=== PATIENT | female | born 1950 | race Caucasian/White ===

== ENCOUNTER 2016-10-15 03:56 | Inpatient (IN) | payer OTHER ==
[2016-10-15] VITALS (8 sets, daily range): BP systolic 122–184; BP diastolic 63–86
[~2016-10-15] VITALS: Ht 180.3 cm; Wt 107.8 kg
--- NOTE | ~2016-10-15 | EKG ---
[address] [address] ELECTROCARDIOGRAM REPORT Name: BRIANNA OSPINA Room #: 215-P ADM IN M.R.#: [id number] Admission: 10/15/16 Attend Phys: Javon Kaba MD Discharge: Date of : 54 Report #: [id number] THIS REPORT FOR: //name// [facility] ED Test Date: 2016-10-15 Test Time: 04:00:25 Pat Name: BRIANNA OSPINA Department: Room: [facility] Gender: F Floor Coverings Installer: OWEN : 1950 Requested By: Anthony Ulrich Order Number: [id number] MD: Rj Billings Measurements Intervals Kiefer Rate: 69 P: 67 ID: 127 QRS: 42 QRSD: 98 T: 20 QT: 401 QTc: 430 Interpretive Statements Sinus rhythm No Significant abnormality No previous ECG available for comparison Electronically Signed On 10-15-2016 7:43:10 CDT by Rj Billings [email or web address] <ELECTRONICALLY SIGNED> By: Rj Billings MD, [facility] 10/15/16 0743 0400 0400 Rj Billings MD, FACC /EPI
--- NOTE | ~2016-10-15 | O ---
[facility] [email or web address] [address] OPERATIVE REPORT Name: BRIANNA OSPINA Room #: 215-P [facility] IN M.R.#: [id number] Admission: 10/15/16 Attend Phys: Júnior Mohamud DO Discharge: 10/17/16 Date of : 54 Report #: [id number] THIS REPORT FOR: //name// CC: Júnior SHAH TREEMANEEKARN DATE OF SERVICE: 10/16/2016 PREOPERATIVE DIAGNOSES: 1. Acute cholecystitis. 2. Cholelithiasis. 3. Obesity. 4. Gastroesophageal reflux disease. 5. Hyperlipidemia. 6. Suspected intra-abdominal adhesions. POSTOPERATIVE DIAGNOSES: 1. Acute cholecystitis. 2. Cholelithiasis. 3. Obesity. 4. Gastroesophageal reflux disease. 5. Hyperlipidemia. 6. Intra-abdominal adhesions. 7. Incarcerated incisional ventral hernia. PROCEDURES PERFORMED: 1. Laparoscopic cholecystectomy with intraoperative cholangiogram. 2. Laparoscopic primary suture repair of an incarcerated incisional ventral hernia. SURGEON: Ulysses Sarabia MD. LAY OUT WORKER: Nicolette Stafford MS3. ANESTHESIA: General endotracheal anesthesia. ESTIMATED BLOOD LOSS: Minimal (less than 5 mL). COMPLICATIONS: None appreciated. SPECIMENS: Gallbladder to pathology. INDICATIONS: The patient is a 66-year-old, slightly obese female, who presented to the emergency room yesterday with severe sudden onset chest pain, radiating down into the epigastrium with nausea and vomiting. The patient was [facility] [place] [address] OPERATIVE REPORT Name: BRIANNA OSPINA Room #: 215-P [facility] IN M.R.#: [id number] Admission: 10/15/16 Attend Phys: Júnior Mohamud DO Discharge: 10/17/16 Date of : 54 Report #: [id number] concerned she was having a heart attack, and underwent a thorough cardiac workup showing no evidence of an ID. A CT angiogram of the chest, abdomen, and pelvis did show, mild thickening to the gallbladder wall, with a large stone, impacting the neck of the gallbladder, and she underwent followup ultrasound, which showed findings concordant with the CT scan. The patient was initiated on IV antibiotic therapy, and as such, indication was for definitive management in the form of laparoscopic cholecystectomy today. Intraoperative findings of adhesions in the mid abdomen from her prior hysterectomy were seen with evidence of an incarcerated band of omentum contained within an incisional ventral hernia, significantly inferior to my supraumbilical fascial incision that required primary suture repair separately from the cholecystectomy. DESCRIPTION OF PROCEDURE: After explaining the risks, benefits, and alternatives of the procedure with the patient in detail in the preoperative holding area and obtaining a written consent, the patient was brought to the operating room and placed supine on the operating room table. After conducting a thorough timeout procedure verifying correct patient and procedure, the patient was given general endotracheal anesthesia. Once adequate anesthesia was obtained, SCDs were placed on the patient's bilateral lower extremities, and she was given a preoperative dose of antibiotics in line with the SCIP protocol, as it was time for her regularly scheduled inpatient regimen. The patient's abdomen was then prepped and draped in the standard surgical sterile fashion. A 5 mL of 0.5% Marcaine with epinephrine were used to anesthetize the skin in the supraumbilical location. A #15 bladed scalpel was used to create a 1 cm transverse skin incision at this location. A #15 bladed scalpel was used to create a 1 cm transverse skin incision at this location. An 11 mm Visiport was placed over a 5 mm 0 degree laparoscope, and intra-abdominal access was obtained through this incision site. Once intraabdominal placement was verified visually, the obturator for the trocar and laparoscope were both removed, and the abdomen was insufflated to 15 mmHg using carbon dioxide gas. The laparoscope was changed to a 10 mm 30-degree laparoscope, which was reintroduced through this trocar. The entire abdomen was evaluated to ensure no injury upon entry, and no pathology outside the right upper quadrant. We immediately identified intra-abdominal adhesions within the mid abdomen. However, our attention was turned towards the upper abdomen first. The patient was placed in reverse Trendelenburg position with right side elevated, and I proceeded to place three additional 5 mm trocars. One was placed in the subxiphoid location and two were placed along the patient's right subcostal margin. All three additional 5 mm ports were placed under direct vision, after anesthetizing the skin at each location with 5 mL of 0.5% Marcaine with epinephrine, and I had created small skin nicks using #15 bladed scalpel. Using the inferolateral most port along the patient's right flank, the fundus of the gallbladder was grasped and retracted cephalad. Careful tedious dissection was now undertaken down around the cholecystocystic junction using a combination of Harmonic scalpel and Maryland dissector. Once I had attained a critical view, namely the cystic duct emanating from the infundibulum of the gallbladder, and coursing into the common [address] [address] OPERATIVE REPORT Name: BRIANNA OSPINA Room #: 215-P DIS IN Jesus#: [id number] Admission: 10/15/16 Attend Phys: Júnior CarverDaniel OneidaDO Discharge: 10/17/16 Date of : 54 Report #: [id number] bile duct, as well as cystic artery running to the surface of the gallbladder, and I had created a window behind each. I placed a single clip along the cystic artery, and transected it nearest to the gallbladder side with Harmonic scalpel for complete hemostasis. A single clip was then placed along the cystic duct nearest to the gallbladder side, and a small ductotomy was made just distal to this clip using EndoShears. This ductotomy was cannulated using the taut cholangiocatheter setup and an intraoperative cholangiogram was obtained. We had prompt opacification of the cystic duct with antegrade flow of contrast into the duodenum. There was no evidence of filling defects or obstruction. Upon flushing saline, I was able to get the intrahepatic bile ducts to fill somewhat to confirm placement within the cystic duct. The taut cholangiocatheter setup was now removed, three clips were placed along the cystic duct nearest to the common bile duct side, and it was transected above these clips using Harmonic scalpel to help seal the duct closed. Further retraction of the infundibulum of the gallbladder in cephalad direction allowed me to elevate the gallbladder off the liver bed, using Harmonic scalpel for hemostasis. Once completely detached, the laparoscope was removed, changed to a 5-mm 30-degree laparoscope, which was reintroduced through the right midclavicular 5 mm trocar. The EndoCatch bag was placed in to supraumbilical trocar and specimen was placed within it under direct vision. The pursestring suture was drawn and specimen was removed from the abdomen under direct vision with ease. I then proceeded to place a supraumbilical fascial closing suture using 0 PDS suture on the Oliver-Chastity needle under direct vision to place the pvfqgg-vu-jbmef suture. This was not tied down at this juncture, but it was tagged with hemostat and trocars were placed under direct vision. I now utilized the Harmonic scalpel to take down the adhesions in the mid abdomen, skeletonizing the posterior aspect of the anterior abdominal wall. There was no evidence of bowel tethered to the abdominal wall whatsoever; however, upon taking down these adhesions, we did encounter an incarcerated band of omentum contained within an incisional ventral hernia from her lower midline and hysterectomy. I, therefore, used the 0 PDS suture on a Oliver-Chastity needle with suture passer device to place a udyets-qz-oqdvu fascial suture around this hernia defect, and tied it down under direct vision completely repairing the defect. Evaluation of the gallbladder fossa showed complete hemostasis with no evidence of spillage or bleeding. The clips on the cystic duct stump appeared to be seated nicely. All ports were now removed under direct vision. The abdomen was fully desufflated. The 0 PDS suture for the supraumbilical fascial incision was then tied down and done so under direct vision by placing the laparoscope back in the right midclavicular 5 mm trocar with the insufflation pressure to 5 mmHg to ensure I did not catch a loop of bowel or omentum in my suture repair. Once the abdomen was fully desufflated, all ports were removed, and all skin incisions were closed using 4-0 Monocryl in standard subcuticular fashion, and skin incisions were closed with Dermabond. The gallbladder was opened on the back table, showing significant findings of marked cholesterolosis and one large gallstone impacting the neck of the gallbladder along with edematous changes and findings consistent with acute on chronic cholecystitis, but no other pathologic findings were [facility] [address] [place] [address] OPERATIVE REPORT Name: BRIANNA OSPINA Room #: 215-P [facility] IN M.R.#: [id number] Admission: 10/15/16 Attend Phys: Júnior Mohamud DO Discharge: 10/17/16 Date of : 54 Report #: [id number] identified. At the end of the procedure, all instrument, needle and sponge counts were correct. The patient tolerated the procedure without incident, was awakened in the operating room, and transitioned to the recovery room in stable condition with no apparent complications. <ELECTRONICALLY SIGNED> By: Ulysses Sarabia MD, FACS 10/18/16 0914 1834 00 Ulysses Sarabia MD, FACS /nt
--- NOTE | ~2016-10-15 | HC ---
[facility] [place] [address] CONSULTATION Name: BRIANNA OSPINA Room #: 215-P ADM IN M.R.#: [id number] Admission: 10/15/16 Attend Phys: Júnior Mohamud DO Discharge: Date of : 54 Report #: [id number] THIS REPORT FOR: //name// CC: Javon [facility]ARN DATE OF SERVICE: 10/15/2016 REFERRING PROVIDER: Javon Kaba MD REASON FOR CONSULTATION: Abdominal pain, nausea and vomiting. HISTORY OF PRESENT ILLNESS: The patient is a 66-year-old overweight female who presented with chest pain and epigastric abdominal pain that began last evening. The patient stated nausea and vomiting and radiation to the left side of her abdomen and in through her back and as such presented to the Emergency Room as she felt she was having a heart attack. The patient underwent a thorough workup with laboratories and EKG, serial troponins and echocardiogram and CT angiogram of the chest, abdomen and pelvis. The patient's complete cardiac workup was negative and the CT scan showed findings of a large gallstone in the neck of the gallbladder with minimal gallbladder wall thickening. The patient then received an ultrasound of the abdomen, which shows cholelithiasis with a large calculus impacted in the neck of the gallbladder with mild gallbladder wall thickening and pericholecystic fluid concerning for acute cholecystitis, especially since she did have a positive sonographic Alva sign as well. There is no ductal dilatation and her labs are completely within normal limits at this time. As the patient has likely acute cholecystitis, I have been asked to evaluate from a surgical standpoint. 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 She has also undergone a hysterectomy. HOME MEDICATIONS: Magnesium oxide, calcium and vitamin B. ALLERGIES: Numerous and include DILAUDID, ADHESIVE TAPE, BACITRACIN, NEOMYCIN, POLYMYXIN B, SULFA, LATEX AND SILVADENE. FAMILY HISTORY: Reviewed and noncontributory. SOCIAL HISTORY: The patient has a long tobacco use history of greater than 1 pack per day for several years and quit less than one year ago. Does not utilize alcohol or illicit drugs. REVIEW OF SYSTEMS: [facility] [address] [place] [address] CONSULTATION Name: BRIANNA OSPINA Room #: 215-P [facility] IN .R.#: [id number] Admission: 10/15/16 Attend Phys: Júnior Mohamud DO Discharge: Date of : 54 Report #: [id number] GENERAL: The patient denies nocturnal fevers or chills. HEENT: No change in vision, change in hearing. NECK: No swelling or difficulty swallowing. HEART: Recent chest pain, but no palpitations. LUNGS: No cough or shortness of breath. ABDOMEN: Abdominal pain, nausea and vomiting. GENITOURINARY: No dysuria or hematuria. ENDOCRINE: No polyuria, polydipsia. HEMATOLOGIC: No history of bleeding or easy bruising. EXTREMITIES: No history of weakness or limited range of motion. NEUROLOGIC: No history of syncope or near syncopal episodes. SKIN AND INTEGUMENT: No history of abnormal lesions or moles. PSYCHIATRIC: No history of anxiety or depression. PHYSICAL EXAMINATION: VITAL SIGNS: Temperature 97.6, pulse 52, respirations 18, blood pressure 127/65. She stands 5 feet 11 inches, weighs 220 pounds. GENERAL: Alert and oriented, in no acute distress. HEENT: Normocephalic, atraumatic. Pupils equal, round, reactive to light. NECK: Supple, without lymphadenopathy. Trachea midline. HEART: Regular rate and rhythm. LUNGS: Clear to auscultation bilaterally. ABDOMEN: Abdominal pain in the right upper quadrant to deep palpation, but no guarding, rebound or peritoneal signs or symptoms. She is soft and nondistended. GENITOURINARY: Normal external female genitalia. EXTREMITIES: No clubbing, cyanosis or edema. NEUROLOGIC: Cranial nerves 2-12 are grossly intact. PSYCHIATRIC: Normal mood and affect. SKIN AND INTEGUMENT: No abnormal lesions or moles. LABORATORY AND X-RAY DATA: CBC shows white blood cell count 10.8 thousand, hemoglobin 15.2, platelets 283,000. She does have a minimal left shift with 77% neutrophils. The patient's creatinine was 0.9. Liver function enzymes and lipase were all normal. INR was normal at 1.0 with PTT normal at 27.0. Chest x-ray shows no acute cardiopulmonary abnormality. Troponins are negative. Echocardiogram shows normal ejection fraction with no structural defects and trace to mild tricuspid regurgitation. CT angiogram of the chest, abdomen and pelvis shows only mild gallbladder wall thickening with cholelithiasis. Ultrasound of the abdomen as per HPI shows cholecystitis with cholelithiasis. ASSESSMENT AND PLAN: A 66-year-old overweight female with what appears to be acute cholecystitis. The patient will be kept n.p.o., given IV fluid rehydration and IV antibiotics and we will proceed to the operating room at the first available opportunity for definitive management to perform laparoscopic cholecystectomy with cholangiogram. Risks, benefits and [address] [address] CONSULTATION Name: BRIANNA OSPINA Room #: 215-P ADM IN M.R.#: [id number] Admission: 10/15/16 Attend Phys: Júnior Mohamud DO Discharge: Date of : 54 Report #: [id number] alternatives of that procedure have been discussed with the patient in detail and she agrees to proceed as outlined. I sincerely appreciate this consult. I will follow closely and leave any further recommendations in the patient's chart as appropriate. <ELECTRONICALLY SIGNED> By: Ulysses Sarabia MD, FACS 10/16/16 0711 1906 19 Ulysses Sarabia MD, FACS /nt
--- NOTE | ~2016-10-15 | 2DMMODE ---
[place] [address] [facility] [place] [address] 2 D/M-MODE ECHOCARDIOGRAM Name: BRIANNA OSPINA Room #: 215-P ADM IN M.R.#: [id number] Admission: 10/15/16 Attend Phys: Hari Ledesma Discharge: Date of : 54 Date of Service: 10/15/16 1530 Report #: [id number] THIS REPORT FOR: //name// APPROVED REPORT Study performed: 10/15/2016 14:36:17 EXAM: Comprehensive 2D, Doppler, and color-flow Echocardiogram Patient Location: Bedside Room #: 215 Blood Pressure: 132/63 mmHg HR: 51 bpm Other Information Study Quality: Fair Indications Chest Pain 2D Dimensions RVDd: 28.28 mm LVEF(%): 61.56 (>50%) IVSd: 8.83 (7-11mm) LVOT Diam: 21.03 (18-24mm) LVDd: 44.22 mm PWd: 9.36 (7-11mm) LVDs: 29.68 (25-40mm) Aortic Root: 23.79 mm IVC: 21.00 mm Swartz's LVEF: 61.56 % Volumes Left Atrial Volume (Systole) Single Plane 4CH: 36.50 mL Single Plane 2CH: 54.24 mL LA ESV Index: 22.00 mL/m2 Aortic Valve AoV Peak Homer.: 1.68 m/s AO Peak Gr.: 11.29 mmHg LVOT Max P.80 mmHg LVOT Max V: 1.30 m/s CIERA Vmax: 2.69 cm2 Mitral Valve E/A Ratio: 2.3 MV Decel. Time: 137.46 ms [facility] [place] [address] [place] [address] 2 D/M-MODE ECHOCARDIOGRAM Name: CHANDANAGABRIELAADABRIANNA Room #: 215-[facility] IN ..#: [id number] Admission: 10/15/16 Attend Phys: Hari Ledesma Discharge: Date of : 54 Date of Service: 10/15/16 1530 Report #: [id number] MV E Max Homer.: 0.89 m/s MV A Homer.: 0.39 m/s MV PHT: 39.86 ms IVRT: 64.59 ms Pulmonary Valve PV Peak Homer.: 0.87 m/s PV Peak Gr.: 3.02 mmHg Pulmonary Vein P Vein S: 41.2 m/s P Vein A: 28.25 m/s P Vein D: 33.8 m/s P Vein A Dur.: 96.9 msec Tricuspid Valve TR Peak Homer.: 2.57 m/s RAP Estimate: 10.00 mmHg TR Peak Gr.: 26.48 mmHg Left Ventricle The left ventricle is normal size. There is normal LV segmental wall motion. There is normal left ventricular wall thickness. The left ventricular systolic function is normal. The left ventricular ejection fraction is within the normal range. LVEF is 55-60%. The left ventricular diastolic function is normal. Right Ventricle The right ventricle is normal size. The right ventricular systolic function is normal. Atria The left atrium size is normal. The right atrium size is normal. Aortic Valve Aortic valve is grossly normal in structure. No aortic regurgitation is present. There is no aortic valvular stenosis. Mitral Valve The mitral valve is normal in structure. There is no mitral valve regurgitation noted. No evidence of mitral valve stenosis. Tricuspid Valve The tricuspid valve is normal in structure. There is trace to mild tricuspid regurgitation. The right atrial pressure is estimated at 10 mmHg. There is mild pulmonary hypertension. The estimated PAP was 36 mmHg. Pulmonic Valve [address] [address] 2 D/M-MODE ECHOCARDIOGRAM Name: BRIANNA OSPINA Room #: 215-P [facility] IN ..#: [id number] Admission: 10/15/16 Attend Phys: Hari Ledesma Discharge: Date of : 54 Date of Service: 10/15/16 1530 Report #: [id number] The pulmonary valve is normal in structure. There is no pulmonic valvular regurgitation. Great Vessels The aortic root is normal in size. IVC is dilated and collapses >50% with inspiration. Pericardium There is no pericardial effusion. <Conclusion> The left ventricle is normal size. LVEF is 55-60%. Aortic valve is grossly normal in structure. The mitral valve is normal in structure. The tricuspid valve is normal in structure. There is trace to mild tricuspid regurgitation. The right atrial pressure is estimated at 10 mmHg. There is mild pulmonary hypertension. The estimated PAP was 36 mmHg. <ELECTRONICALLY SIGNED> By: Donnell Hutchison MD 10/15/16 1530 1530 1530 Donnell Hutchison MD /INF
--- NOTE | ~2016-10-15 | S ---
[facility] [place] [address] SURGICAL PATH RPT PROCEDURE Name: BRIANNA LAZO Room #: 215-P [facility] IN M.R.#: [id number] Admission: 10/15/16 Date of : 54 Discharge: 10/17/16 Report #: [id number] Path Case #: [id number] PATHOLOGY REPORT COLLECTION DATE: 10/16/2016 RECEIVED DATE: 10/17/2016 SUBMITTING PHYS: Dr. Ulysses Sarabia OTHER PHYS: Dr. Gurpreet Mohamud SPECIMEN(S) RECEIVED: A.Gallbladder * * * * * * * * * * * * FINAL DIAGNOSIS: Gallbladder, cholecystectomy: - Mild acute and chronic cholecystitis. - Cholelithiasis. PATHOLOGIST: Astrid Renner M.D. REPORT ELECTRONICALLY SIGNED BY: Astrid Renner M.D. DATE/TIME: 10/18/2016 17:23 * * * * * * * * * * * * GROSS PATHOLOGY: Received in formalin labeled "Brianna Lazo, gallbladder," is a 7.2 x 3.2 x 1.1 cm, previously opened gallbladder with green to brown wrinkled serosal surfaces. Opening the gallbladder reveals brown to green mucosa and an average wall thickness of 0.2 cm. Calculi are present and no masses are noted grossly. Communications Attendant sections from the body and fundus are submitted along with the proximal margin in cassette A1. (NICKIE; 10/17/2016) CLINICAL HISTORY: Cholecystitis INITIAL CPT CODE(S): A; 15894 Professional services performed by [facility] at [facility] [address], [place] [address] Technical services performed by [facility] at [address] [place] [address]. [facility] [address] [place] [address] SURGICAL PATH RPT PROCEDURE Name: BRIANNA LAZO Room #: 215-P [facility] IN .R.#: [id number] Admission: 10/15/16 Date of : 54 Discharge: 10/17/16 Report #: [id number] Path Case #: [id number] Arabella Schumacherluis [facility] [address] [place] [id number] PHONE: [phone] DIRECTOR: Carlos Rosenberg M.D. * * * END OF REPORT * * *
[~2016-10-15 03:56] MED LIST: ALEVE220 MG PO; EXCEDRIN CAPLE1 EACH PO; LEVOTHYROXINE0.05 MG PO; LYRICA 75 MG CA75 MG PO; NEXIUM40 MG PO; PAXIL10 MG; XANAX 0.5 MG0.5 MG PO; ZOCOR20 MG PO
[2016-10-15] MEDS ORDERED: SUPPLEMENTS (04:09)
[2016-10-15] MEDS ORDERED: MAGNESIUM OXID400 MG PO (04:09)
[2016-10-15] MEDS ORDERED: VITAMIN B COMP1 EACH PO (04:10)
[2016-10-15] MEDS ORDERED: CALCIUM SUPPLEMENT PO (04:10)
[2016-10-15 04:27] LABS: ABSOLUTE NEUTROPHILS 8.3 thou/uL (1.4-8.2); BASOPHILS 0.3 % (0.0-2.0); EOSINOPHILS 0.8 % (0.0-3.0); HEMATOCRIT 44.7 % (37.0-47.0); HEMOGLOBIN 15.2 gm/dL (12.0-15.0); LYMPHOCYTES 16.7 % (24.0-44.0); MCH 29.3 pg (26.0-34.0); MCHC 34.1 g/dL (28.0-37.0); MCV 86.1 fL (80.0-100.0); PLATELET COUNT 283 thou/uL (150-400); POLYS 77.2 % (36.0-66.0); RDW 13.7 % (10.5-14.5); WBC 10.8 thou/uL (4.0-11.0)
[2016-10-15 04:36] LABS: MANUAL DIFF NO
[2016-10-15 04:42] LABS: ANION GAP 9 mmol/L (7-16); BUN 11 mg/dL (7-18); CALCIUM 9.2 mg/dL (8.5-10.1); CHLORIDE 103 mmol/L (98-107); CO2 24 mmol/L (21-32); CREATININE 0.9 mg/dL (0.6-1.0); GLUCOSE 146 mg/dL (74-106); POTASSIUM 4.5 mmol/L (3.5-5.1); SODIUM 136 mmol/L (136-145)
[2016-10-15 04:45] LABS: PROTIME 9.8 Seconds (9.3-11.4)
[2016-10-15 04:58] LABS: ALBUMIN 3.8 g/dL (3.4-5.0); ALKALINE PHOSPHATASE 55 U/L (46-116); CK-MB MASS 0.6 ng/mL (<0.5-3.6); MAGNESIUM 2.1 mg/dL (1.8-2.4); NT-PRO BRAIN NAT PEPTIDE 117 pg/mL (<300); SGOT 18 U/L (15-37); SGPT 23 U/L (30-65); TOTAL BILIRUBIN 0.3 mg/dL (<0.1-1.0); TOTAL PROTEIN 7.8 g/dL (6.4-8.2); TROPONIN-I < 0.04 ng/mL (<0.04-0.07)
[2016-10-16] VITALS (12 sets, daily range): BP systolic 123–158; BP diastolic 42–77
[2016-10-16 03:26] LABS: HEMATOCRIT 40.4 % (37.0-47.0); HEMOGLOBIN 13.7 gm/dL (12.0-15.0); MCH 29.3 pg (26.0-34.0); MCHC 33.8 g/dL (28.0-37.0); MCV 86.6 fL (80.0-100.0); RBC 4.66 mil/uL (4.20-5.00); RDW 13.8 % (10.5-14.5); WBC 6.7 thou/uL (4.0-11.0)
[2016-10-16 03:43] LABS: ALBUMIN 3.1 g/dL (3.4-5.0); CALCIUM 8.4 mg/dL (8.5-10.1); CREATININE 1.1 mg/dL (0.6-1.0); POTASSIUM 3.9 mmol/L (3.5-5.1); TOTAL BILIRUBIN 0.5 mg/dL (<0.1-1.0); TOTAL PROTEIN 6.2 g/dL (6.4-8.2)
[2016-10-16 07:50] LABS: CHOLESTEROL 167 mg/dL (<200); HDL CHOLESTEROL 41 mg/dL (>40); LDL CHOLESTEROL 108 mg/dL (<100); TC:HDL 4.1 Ratio (Not establshd); TRIGLYCERIDE 94 mg/dL (<150); VLDL 19 mg/dL (<40)
[2016-10-17 03:53] LABS: HEMATOCRIT 39.4 % (37.0-47.0); HEMOGLOBIN 13.3 gm/dL (12.0-15.0); MCH 29.4 pg (26.0-34.0); MCHC 33.7 g/dL (28.0-37.0); MCV 87.1 fL (80.0-100.0); RBC 4.52 mil/uL (4.20-5.00); RDW 13.7 % (10.5-14.5); WBC 8.4 thou/uL (4.0-11.0)
[2016-10-17 04:08] LABS: CALCIUM 8.5 mg/dL (8.5-10.1); CREATININE 1.2 mg/dL (0.6-1.0); POTASSIUM 3.8 mmol/L (3.5-5.1)
[2016-10-17 04:16] VITALS: BP 167/71
[2016-10-17 08:00] VITALS: BP 135/71
[2016-10-17] MEDS ORDERED: TRAMADOL 50 MG50 MG PO (08:35)
[2016-10-17 10:02] VITALS: BP 135/71
== END 2016-10-17 10:45 | disposition home or self-care (01) | DRG 418 ==
LOC: ER 03:56 → EROBS 05:53 → 2N 05:53
PROVIDERS: Emergency Medicine; Nurse Practitioner Adult Health; Surgery
PROC: 0FT44ZZ Resection of Gallbladder, Percutaneous Endoscopic Approach (ICD-10-PCS; principal; 2016-10-16)
PROC: BF121ZZ Fluoroscopy of Gallbladder using Low Osmolar Contrast (ICD-10-PCS; principal; 2016-10-16)
PROC: 0WQF4ZZ Repair Abdominal Wall, Percutaneous Endoscopic Approach (ICD-10-PCS; principal; 2016-10-16)
DX: K80.00 Calculus of gallbladder with acute cholecystitis without obstruction (principal); K43.0 Incisional hernia with obstruction, without gangrene; E44.1 Mild protein-calorie malnutrition; N17.9 Acute kidney failure, unspecified; K21.9 Gastro-esophageal reflux disease without esophagitis; G62.9 Polyneuropathy, unspecified; F41.9 Anxiety disorder, unspecified; E03.9 Hypothyroidism, unspecified; E78.5 Hyperlipidemia, unspecified; E66.9 Obesity, unspecified; K66.0 Peritoneal adhesions (postprocedural) (postinfection); Z79.82 Long term (current) use of aspirin; Z79.899 Other long term (current) drug therapy; Z90.710 Acquired absence of both cervix and uterus; Z85.89 Personal history of malignant neoplasm of other organs and systems; Z88.2 Allergy status to sulfonamides; Z88.6 Allergy status to analgesic agent; Z88.1 Allergy status to other antibiotic agents; Z91.040 Latex allergy status; Z87.891 Personal history of nicotine dependence; Z68.33 Body mass index [BMI] 33.0-33.9, adult
CPT/HCPCS: 10081; 50010; 50101; 50249; 50411; 50555; 50558; 50962; 51975; 52265; 53307; 54022; 54118; 55245; 55317; 56462; 56525; 56526; 62110; 62900; 70005